=== PATIENT | female | born 1965 | race Caucasian/White ===

== ENCOUNTER 2021-03-07 09:18 | Day surgery (SDC) | payer MEDICARE ==
[2021-03-07] MEDS ORDERED: Depo-Medrol 40 MG/ML IM ONE (09:19)
[2021-03-07] MEDS ORDERED: Sodium Chloride 0.9(Preservative Free) 10 ML IJ ONE (09:19)
[2021-03-07] MEDS ORDERED: DIPRIVAN 200 MG/20 ML IV ONE (10:33)
--- NOTE | 2021-03-07 11:54 | XRAY ---
52 seconds fluoroscopy time in surgery for left L3-S1 transforaminal JEREMIAH.
--- NOTE | 2021-03-07 12:07 | XRAY ---
Indication: Left L3-S1 transforaminal JEREMIAH. Intraoperative fluoroscopy provided for 52 seconds. 3 digital spot image submitted for interpretation demonstrates posterior needle tips projecting over the expected left L3-L5 nerve roots. Small amount of contrast injected for needle tip placement. Correlate with intraoperative findings/report. Incidental incompletely visualized bilateral L4-S1 posterior fusion hardware.
[2021-03-07] MEDS ORDERED: Lactated Ringers 1,000 ML IV ONE (15:30)
== END 2021-03-07 11:10 | disposition home or self-care (01) ==
LOC: SDC-PAIN 09:18
PROVIDERS: ATTEND Psychiatry & Neurology Pain Medicine
DX: M54.16 Radiculopathy, lumbar region (principal); I10 Essential (primary) hypertension; E78.5 Hyperlipidemia, unspecified; E11.9 Type 2 diabetes mellitus without complications; F32.9 Major depressive disorder, single episode, unspecified; F41.9 Anxiety disorder, unspecified; D64.9 Anemia, unspecified; E03.9 Hypothyroidism, unspecified; Z79.899 Other long term (current) drug therapy
CPT/HCPCS: 64483; 64484; 72100; 77003; 82947; J1030; J2704; Q9966

== ENCOUNTER 2021-04-25 07:33 | Day surgery (SDC) | payer MEDICARE ==
[2021-04-25] MEDS ORDERED: BUPIVACAINE 0.5% VIAL IJ ONE (07:34)
[2021-04-25] MEDS ORDERED: Sodium Chloride 0.9(Preservative Free) 10 ML IJ ONE (07:34)
[2021-04-25] MEDS ORDERED: Depo-Medrol 40 MG/ML IM ONE (07:34)
[2021-04-25] MEDS ORDERED: DIPRIVAN 200 MG/20 ML IV ONE ×2 (09:13→09:31)
[2021-04-25] MEDS ORDERED: Ketamine HCl 50 MG/ML ONE (09:13)
[2021-04-25] MEDS ORDERED: Lactated Ringers 1,000 ML IV ONE (10:30)
--- NOTE | 2021-04-25 17:00 | XRAY ---
49 seconds of fluoroscopy in surgery for left L3-L5 transforaminal JEREMIAH.
--- NOTE | 2021-04-25 17:09 | XRAY ---
12 seconds of fluoroscopy in surgery for a left sacroiliac joint injection.
--- NOTE | 2021-04-27 09:17 | XRAY ---
Indication: Left L3-L5 transforaminal JEREMIAH. Intraoperative fluoroscopy was provided for 49 seconds. 4 digital spot images submitted for interpretation demonstrate posterior needle tips projected over the expected course of the left L3 and L4 nerve roots. Some contrast has been injected for needle tip placement. Correlate with intraoperative findings/report. I again partially see orthopedic hardware for a bilateral L4-S1 fusion.
--- NOTE | 2021-04-27 09:27 | XRAY ---
Indication: Left sacroiliac joint injection. Intraoperative fluoroscopy was provided for 12 seconds. A single lateral digital spot image submitted for interpretation demonstrates the posterior needle tip projected over the sacroiliac joint. Correlate with intraoperative findings/report.
== END 2021-04-25 09:50 | disposition home or self-care (01) ==
LOC: SDC-PAIN 07:33
PROVIDERS: ATTEND Psychiatry & Neurology Pain Medicine
DX: M54.16 Radiculopathy, lumbar region (principal); M46.1 Sacroiliitis, not elsewhere classified; E11.9 Type 2 diabetes mellitus without complications; Z79.899 Other long term (current) drug therapy
CPT/HCPCS: 27096; 64483; 64484; 72020; 72100; 77002; 77003; 82947; J1030; J2704; Q9966; G0260

== ENCOUNTER 2021-05-23 08:35 | Day surgery (SDC) | payer MEDICARE ==
[2021-05-23] MEDS ORDERED: Depo-Medrol 40 MG/ML IM ONE (08:36)
[2021-05-23] MEDS ORDERED: LIDOCAINE HCL 2% 100 MG/5 ML IJ ONE (08:36)
[2021-05-23] MEDS ORDERED: Lactated Ringers 1,000 ML IV ONE (09:04)
[2021-05-23] MEDS ORDERED: DIPRIVAN 200 MG/20 ML IV ONE (10:30)
--- NOTE | 2021-05-23 12:03 | XRAY ---
Indication: Bilateral L4-S1 MBB. Intraoperative fluoroscopy provided for 26 seconds. Single digital spot image submitted for interpretation demonstrates posterior needle tips projecting over the expected left and right L4-S1 nerve roots. Correlate with intraoperative findings/report. Incidental bilateral L4-S1 posterior spinal fusion hardware.
--- NOTE | 2021-05-23 12:51 | XRAY ---
26 seconds fluoroscopy time in surgery for bilateral L4-S1 MBB.
== END 2021-05-23 10:55 | disposition home or self-care (01) ==
LOC: SDC-PAIN 08:35
PROVIDERS: ATTEND Psychiatry & Neurology Pain Medicine
DX: M47.816 Spondylosis without myelopathy or radiculopathy, lumbar region (principal); E11.9 Type 2 diabetes mellitus without complications; Z79.899 Other long term (current) drug therapy
CPT/HCPCS: 64493; 64494; 72020; 77002; 82947; J1030; J2704

== ENCOUNTER 2021-06-06 10:17 | Day surgery (SDC) | payer MEDICARE ==
[2021-06-06] MEDS ORDERED: BUPIVACAINE 0.5% VIAL IJ ONE (10:18)
[2021-06-06] MEDS ORDERED: Depo-Medrol 80 MG/ML IM ONE (10:18)
[2021-06-06] MEDS ORDERED: DIPRIVAN 200 MG/20 ML IV ONE (12:04)
--- NOTE | 2021-06-06 13:18 | XRAY ---
Indication: Bilateral L4-S1 MBB. Intraoperative fluoroscopy was provided for 22 seconds. Single digital spot image submitted for interpretation demonstrates posterior needle tips projecting over the expected left and right L4-S1 nerve roots. Correlate with intraoperative findings/report. Incidental bilateral L4-S1 posterior spinal fusion hardware.
--- NOTE | 2021-06-06 14:28 | XRAY ---
22 seconds of fluoroscopy was used in surgery for a bilateral L4-S1 MBB.
[2021-06-06] MEDS ORDERED: Lactated Ringers 1,000 ML IV ONE (17:26)
== END 2021-06-06 12:30 | disposition home or self-care (01) ==
LOC: SDC-PAIN 10:17
PROVIDERS: ATTEND Psychiatry & Neurology Pain Medicine
DX: M47.816 Spondylosis without myelopathy or radiculopathy, lumbar region (principal); E11.9 Type 2 diabetes mellitus without complications; Z79.899 Other long term (current) drug therapy
CPT/HCPCS: 64493; 64494; 72020; 77002; 82947; J1040; J2704

== ENCOUNTER 2021-07-11 08:10 | Day surgery (SDC) | payer MEDICARE ==
[2021-07-11] MEDS ORDERED: BUPIVACAINE 0.5% VIAL IJ ONE (08:11)
[2021-07-11] MEDS ORDERED: Depo-Medrol 40 MG/ML IM ONE (08:11)
[2021-07-11] MEDS ORDERED: Xylocaine 1% Vial 30 ML PF IJ ONE (08:11)
[2021-07-11] MEDS ORDERED: DIPRIVAN 200 MG/20 ML IV ONE (09:20)
--- NOTE | 2021-07-11 12:21 | XRAY ---
Indication: Left L4-S1 RFA. Intraoperative fluoroscopy provided for 42 seconds. 4 digital spot images submitted for interpretation demonstrates posterior needle tips projecting over the expected left L4-S1 nerve roots. Correlate with intraoperative findings/report. Incidental bilateral L4-S1 posterior spinal fusion hardware.
--- NOTE | 2021-07-11 12:23 | XRAY ---
42 seconds of fluoroscopy was used in surgery for a left L4-S1 RFA.
[2021-07-11] MEDS ORDERED: Lactated Ringers 1,000 ML IV ONE (12:26)
== END 2021-07-11 09:55 | disposition home or self-care (01) ==
LOC: SDC-PAIN 08:10
PROVIDERS: ATTEND Psychiatry & Neurology Pain Medicine
DX: M47.816 Spondylosis without myelopathy or radiculopathy, lumbar region (principal); E11.9 Type 2 diabetes mellitus without complications; Z79.899 Other long term (current) drug therapy
CPT/HCPCS: 64635; 64636; 72100; 77002; 82947; J1030; J2001; J2704

== ENCOUNTER 2021-07-18 06:47 | Day surgery (SDC) | payer MEDICARE ==
[2021-07-18] MEDS ORDERED: Depo-Medrol 40 MG/ML IM ONE (06:48)
[2021-07-18] MEDS ORDERED: BUPIVACAINE 0.5% VIAL IJ ONE (06:48)
[2021-07-18] MEDS ORDERED: Xylocaine 1% Vial 30 ML PF IJ ONE (06:48)
[2021-07-18] MEDS ORDERED: DIPRIVAN 200 MG/20 ML IV ONE ×2 (07:56→08:12)
[2021-07-18] MEDS ORDERED: Lactated Ringers 1,000 ML IV ONE (09:54)
--- NOTE | 2021-07-18 09:57 | XRAY ---
44 seconds fluoroscopy time in surgery for right L4-S1 RFA.
--- NOTE | 2021-07-18 09:58 | XRAY ---
Indication: Right L4-S1 RFA. Intraoperative fluoroscopy provided for 44 seconds. 3 digital spot image submitted for interpretation demonstrates posterior needle tips projecting over the expected right L4-S1 nerve roots. Correlate with intraoperative findings/report. Incidental bilateral L4-S1 posterior spinal fusion hardware.
== END 2021-07-18 08:43 | disposition home or self-care (01) ==
LOC: SDC-PAIN 06:47
PROVIDERS: ATTEND Psychiatry & Neurology Pain Medicine
DX: M47.816 Spondylosis without myelopathy or radiculopathy, lumbar region (principal); I10 Essential (primary) hypertension; E78.5 Hyperlipidemia, unspecified; E11.9 Type 2 diabetes mellitus without complications; D64.9 Anemia, unspecified; E03.9 Hypothyroidism, unspecified; F41.9 Anxiety disorder, unspecified; F32.9 Major depressive disorder, single episode, unspecified; Z79.899 Other long term (current) drug therapy
CPT/HCPCS: 64635; 64636; 72100; 77002; 82947; J1030; J2001; J2704

== ENCOUNTER 2021-09-12 09:11 | Day surgery (SDC) | payer MEDICARE ==
[2021-09-12] MEDS ORDERED: Depo-Medrol 40 MG/ML IM ONE (09:12)
[2021-09-12] MEDS ORDERED: BUPIVACAINE 0.5% VIAL IJ ONE (09:12)
[2021-09-12] MEDS ORDERED: Sodium Chloride 0.9% 10 ML FLUSH Syringe IJ ONE (09:12)
[2021-09-12] MEDS ORDERED: DIPRIVAN 200 MG/20 ML IV ONE ×2 (11:06→11:22)
[2021-09-12] MEDS ORDERED: Lactated Ringers 1,000 ML IV ONE (11:19)
--- NOTE | 2021-09-12 13:22 | XRAY ---
Indication: Left L3-L5 transforaminal JEREMIAH. Intraoperative fluoroscopy provided for 1 minute 4 seconds. 2 digital spot image submitted for interpretation demonstrates posterior needle tips projecting over the expected left L3 and L4 nerve roots. Small amount of contrast injected for needle tip placement. Correlate with intraoperative findings/report. Incidental bilateral L4-S1 posterior fusion hardware.
--- NOTE | 2021-09-12 13:22 | XRAY ---
Indication: Left SI joint injection Intraoperative fluoroscopy provided for 8 seconds. 2 digital spot image submitted for interpretation demonstrates posterior needle tip projecting over the inferior left SI joint. Correlate with intraoperative findings/report.
--- NOTE | 2021-09-12 13:24 | XRAY ---
1 minute 4 seconds of fluoroscopy was used in surgery for a left L3-L5 transforaminal JEREMIAH.
--- NOTE | 2021-09-12 13:24 | XRAY ---
8 seconds of fluoroscopy was used in surgery for a left SI joint injection.
== END 2021-09-12 11:45 | disposition home or self-care (01) ==
LOC: SDC-PAIN 09:11
PROVIDERS: ATTEND Psychiatry & Neurology Pain Medicine
DX: M54.16 Radiculopathy, lumbar region (principal); M46.1 Sacroiliitis, not elsewhere classified; I10 Essential (primary) hypertension; E78.5 Hyperlipidemia, unspecified; E11.9 Type 2 diabetes mellitus without complications; Z79.899 Other long term (current) drug therapy
CPT/HCPCS: 27096; 64483; 64484; 72020; 72100; 77002; 77003; 82947; G0260; J1030; J2704; Q9966

== ENCOUNTER 2021-11-07 08:08 | Day surgery (SDC) | payer MEDICARE ==
[2021-11-07] MEDS ORDERED: BUPIVACAINE 0.5% VIAL IJ ONE (08:09)
[2021-11-07] MEDS ORDERED: Xylocaine 1% Vial 30 ML PF IJ ONE (08:09)
[2021-11-07] MEDS ORDERED: Decadron 4 MG INJ IV ONE (08:09)
[2021-11-07] MEDS ORDERED: Depo-Medrol 40 MG/ML IM ONE (08:09)
[2021-11-07] MEDS ORDERED: Lactated Ringers 1,000 ML IV ONE ×2 (09:25→10:35)
[2021-11-07] MEDS ORDERED: DIPRIVAN 200 MG/20 ML IV ONE (09:44)
--- NOTE | 2021-11-07 12:11 | XRAY ---
Indication: Left greater trochanter bursa injection. Intraoperative fluoroscopy provided for 32 seconds. Single digital spot image obtained prone submitted for interpretation demonstrates needle tip lateral to the left greater trochanter. Small amount of contrast injected for needle tip placement. Correlate with intraoperative findings/report.
--- NOTE | 2021-11-07 12:31 | XRAY ---
32 seconds fluoroscopy time in surgery for injection of the greater trochanter of the left hip and the left piriformis muscle.
== END 2021-11-07 10:10 | disposition home or self-care (01) ==
LOC: SDC-PAIN 08:08
PROVIDERS: ATTEND Psychiatry & Neurology Pain Medicine
DX: M79.18 Myalgia, other site (principal); M70.61 Trochanteric bursitis, right hip; E11.9 Type 2 diabetes mellitus without complications; Z79.899 Other long term (current) drug therapy
CPT/HCPCS: 20552; 20610; 73502; 76942; 77002; 82947; J1030; J1100; J2001; J2704; Q9966

== ENCOUNTER 2021-11-29 07:45 | Day surgery (SDC) | payer MEDICARE ==
[2021-11-29] MEDS ORDERED: Depo-Medrol 40 MG/ML IM ONE (07:46)
[2021-11-29] MEDS ORDERED: BUPIVACAINE 0.5% VIAL IJ ONE (07:46)
[2021-11-29] MEDS ORDERED: Lactated Ringers 1,000 ML IV ONE (08:50)
[2021-11-29] MEDS ORDERED: DIPRIVAN 200 MG/20 ML IV ONE (08:53)
--- NOTE | 2021-11-29 11:01 | XRAY ---
38 seconds of fluoroscopy was used in surgery for a left greater trochanteric bursa and intra-articular injection.
--- NOTE | 2021-11-29 11:01 | XRAY ---
Indication: Left hip and greater trochanter bursa injections. Intraoperative fluoroscopy provided for 38 seconds. 2 digital spot images submitted for interpretation demonstrate needle tip lateral to left femur neck and left greater trochanter. Small amount of contrast injected for both needle tip placement. Correlate with intraoperative findings/report.
== END 2021-11-29 09:57 | disposition home or self-care (01) ==
LOC: SDC-PAIN 07:45
PROVIDERS: ATTEND Psychiatry & Neurology Pain Medicine
DX: M16.12 Unilateral primary osteoarthritis, left hip (principal); E11.9 Type 2 diabetes mellitus without complications; I10 Essential (primary) hypertension; Z79.899 Other long term (current) drug therapy
CPT/HCPCS: 20610; 73502; 77002; 82947; J1030; J2704; Q9966

== ENCOUNTER 2022-04-03 07:45 | Day surgery (SDC) | payer MEDICARE ==
[2022-04-03] MEDS ORDERED: Depo-Medrol 40 MG/ML IM ONE (07:46)
[2022-04-03] MEDS ORDERED: Sodium Chloride 0.9(Preservative Free) 10 ML IJ ONE (07:46)
[2022-04-03] MEDS ORDERED: XYLOCAINE-MPF 1% 5ML SDV IJ ONE (07:46)
[2022-04-03] MEDS ORDERED: Decadron 4 MG INJ IV ONE (07:46)
[2022-04-03] MEDS ORDERED: DIPRIVAN 200 MG/20 ML IV ONE (10:01)
[2022-04-03] MEDS ORDERED: Lactated Ringers 1,000 ML IV ONE (10:53)
--- NOTE | 2022-04-03 11:46 | XRAY ---
Indication: Left L3-L5 transforaminal JEREMIAH and left piriformis injection. Intraoperative fluoroscopy provided for 79 seconds. 6 digital spot image submitted for interpretation demonstrates posterior needle tips projecting over the expected left L3 and L4 nerve roots. Additional posterior needle tip projects over the left piriformis muscle. Small amount of contrast injected for all needle tip placement. Correlate with intraoperative findings/report. Incidental scattered bismuth versus barium throughout the colon.
--- NOTE | 2022-04-03 12:07 | XRAY ---
79 seconds of fluoroscopy was used in surgery for a left L3-L5 transforaminal JEREMIAH and a left piriformis injection.
== END 2022-04-03 10:12 | disposition home or self-care (01) ==
LOC: SDC-PAIN 07:45
PROVIDERS: ATTEND Psychiatry & Neurology Pain Medicine
DX: M54.16 Radiculopathy, lumbar region (principal); M79.18 Myalgia, other site; E11.9 Type 2 diabetes mellitus without complications; Z79.899 Other long term (current) drug therapy
CPT/HCPCS: 20552; 64483; 72100; 77002; 77003; 82947; J1030; J1100; J2704; Q9966

== ENCOUNTER 2022-10-23 08:30 | Day surgery (SDC) | payer MEDICARE ==
[2022-10-23] MEDS ORDERED: Sodium Chloride 0.9(Preservative Free) 10 ML IJ ONE (08:31)
[2022-10-23] MEDS ORDERED: Depo-Medrol 40 MG/ML IM ONE (08:31)
[2022-10-23] MEDS ORDERED: DIPRIVAN 200 MG/20 ML IV ONE (11:03)
--- NOTE | 2022-10-23 11:53 | XRAY ---
Indication: Left L3-L5 transforaminal JEREMIAH. Intraoperative fluoroscopy provided for 51 seconds. 6 digital spot image submitted for interpretation demonstrates posterior needle tips projecting over the expected left L3 and L4 nerve roots. Small amount of contrast injected for needle tip placement. Correlate with intraoperative findings/report. Incidental incompletely visualized bilateral L4-S1 posterior fusion hardware.
--- NOTE | 2022-10-23 12:24 | XRAY ---
51 seconds of fluoroscopy was used in surgery for a left L3-L5 transforaminal JEREMIAH.
[2022-10-23] MEDS ORDERED: Lactated Ringers 1,000 ML IV ONE (13:28)
== END 2022-10-23 11:40 | disposition home or self-care (01) ==
LOC: SDC-PAIN 08:30
PROVIDERS: ATTEND Psychiatry & Neurology Pain Medicine
DX: M54.16 Radiculopathy, lumbar region (principal); E11.9 Type 2 diabetes mellitus without complications; Z79.899 Other long term (current) drug therapy
CPT/HCPCS: 64483; 64484; 72100; 77003; 82947; J1030; J2704; Q9966

== ENCOUNTER 2023-02-26 09:06 | Day surgery (SDC) | payer MEDICARE ==
[2023-02-26] MEDS ORDERED: LIDOCAINE HCL 1% 50 MG/5 ML VL PF IJ ONE (09:07)
[2023-02-26] MEDS ORDERED: Depo-Medrol 40 MG/ML IM ONE (09:07)
[2023-02-26] MEDS ORDERED: BUPIVACAINE 0.5% VIAL IJ ONE (09:07)
[2023-02-26] MEDS ORDERED: DIPRIVAN 200 MG/20 ML IV ONE (10:58)
--- NOTE | 2023-02-26 12:18 | XRAY ---
Indication: Left L4-S1 RFA. Intraoperative fluoroscopy provided for 35 seconds. 4 digital spot images submitted for interpretation demonstrates posterior needle tips projecting over the expected left L4-S1 nerve roots. Correlate with intraoperative findings/report. Incidental bilateral L4-S1 posterior fusion hardware.
--- NOTE | 2023-02-26 13:17 | XRAY ---
35 seconds of fluoroscopy was used in surgery for a left L4-S1 RFA.
[2023-02-26] MEDS ORDERED: Lactated Ringers 1,000 ML IV ONE (13:56)
== END 2023-02-26 11:28 | disposition home or self-care (01) ==
LOC: SDC-PAIN 09:06
PROVIDERS: ATTEND Psychiatry & Neurology Pain Medicine
DX: M47.816 Spondylosis without myelopathy or radiculopathy, lumbar region (principal); E11.9 Type 2 diabetes mellitus without complications; Z79.899 Other long term (current) drug therapy
CPT/HCPCS: 64635; 64636; 72100; 77002; 82947; J1030; J2001; J2704

== ENCOUNTER 2023-03-05 09:02 | Day surgery (SDC) | payer MEDICARE ==
[2023-03-05] MEDS ORDERED: Depo-Medrol 40 MG/ML IM ONE (09:03)
[2023-03-05] MEDS ORDERED: BUPIVACAINE 0.5% VIAL IJ ONE (09:03)
[2023-03-05] MEDS ORDERED: LIDOCAINE HCL 1% 50 MG/5 ML VL PF IJ ONE (09:03)
[2023-03-05] MEDS ORDERED: DIPRIVAN 200 MG/20 ML IV ONE (10:53)
--- NOTE | 2023-03-05 13:10 | XRAY ---
Indication: Right L4-S1 RFA Intraoperative fluoroscopy provided for 34 seconds. 7 digital spot image submitted for interpretation demonstrates posterior needle tips projecting over the expected right L4-S1 nerve roots. Correlate with intraoperative findings/report. Incidental bilateral L5-S1 posterior fusion hardware.
[2023-03-05] MEDS ORDERED: Lactated Ringers 1,000 ML IV ONE (13:34)
--- NOTE | 2023-03-05 13:54 | XRAY ---
34 seconds of fluoroscopy was used in surgery for a right L4-S1 RFA.
== END 2023-03-05 11:23 | disposition home or self-care (01) ==
LOC: SDC-PAIN 09:02
PROVIDERS: ATTEND Psychiatry & Neurology Pain Medicine
DX: M47.816 Spondylosis without myelopathy or radiculopathy, lumbar region (principal); E11.9 Type 2 diabetes mellitus without complications; Z79.899 Other long term (current) drug therapy
CPT/HCPCS: 64635; 64636; 72100; 77002; 82947; J1030; J2001; J2704

== ENCOUNTER 2024-06-02 07:50 | Day surgery (SDC) | payer MEDICARE ==
[2024-06-02] MEDS ORDERED: BUPIVACAINE 0.5% VIAL IJ ONE (07:51)
[2024-06-02] MEDS ORDERED: Depo-Medrol 40 MG/ML IM ONE (07:51)
[2024-06-02] MEDS ORDERED: LIDOCAINE HCL 1% AMPUL 5 ML IJ ONE (07:51)
[2024-06-02] MEDS ORDERED: DIPRIVAN 200 MG/20 ML IV ONE (09:16)
[2024-06-02] MEDS ORDERED: Lactated Ringers 1,000 ML IV ONE (09:54)
--- NOTE | 2024-06-02 10:47 | XRAY ---
Indication: Right L4-S1 RFA. Intraoperative fluoroscopy provided for 28 seconds. 5 digital spot images submitted for interpretation demonstrates posterior needle tips projecting over the expected right L4-S1 nerve root. Correlate with intraoperative findings/report. Incidental bilateral L4-S1 posterior fusion hardware.
--- NOTE | 2024-06-02 13:08 | XRAY ---
28 seconds of fluoroscopy was used in surgery for a right L4-S1 RFA.
== END 2024-06-02 09:57 | disposition home or self-care (01) ==
LOC: SDC-PAIN 07:50
PROVIDERS: ATTEND Psychiatry & Neurology Pain Medicine
DX: M47.816 Spondylosis without myelopathy or radiculopathy, lumbar region (principal); E11.9 Type 2 diabetes mellitus without complications
CPT/HCPCS: 64635; 64636; 72100; 77002; 82947; J2704

== ENCOUNTER 2024-06-09 07:52 | Day surgery (SDC) | payer MEDICARE ==
[2024-06-09] MEDS ORDERED: LIDOCAINE HCL 1% AMPUL 5 ML IJ ONE (07:53)
[2024-06-09] MEDS ORDERED: Depo-Medrol 40 MG/ML IM ONE (07:53)
[2024-06-09] MEDS ORDERED: BUPIVACAINE 0.5% VIAL IJ ONE (07:53)
[2024-06-09] MEDS ORDERED: DIPRIVAN 200 MG/20 ML IV ONE (09:47)
[2024-06-09] MEDS ORDERED: Lactated Ringers 1,000 ML IV ONE (09:53)
--- NOTE | 2024-06-09 10:31 | XRAY ---
Indication: Left L4-S1 RFA. Intraoperative fluoroscopy provided for 29 seconds. 3 digital spot image submitted for interpretation demonstrates posterior needle tips projecting over the expected left L4-S1 nerve roots. Correlate with intraoperative findings/report. Incidental bilateral L4-S1 posterior fusion hardware.
--- NOTE | 2024-06-09 11:33 | XRAY ---
29 seconds of fluoroscopy was used in surgery for a left L4-S1 RFA.
== END 2024-06-09 10:15 | disposition home or self-care (01) ==
LOC: SDC-PAIN 07:52
PROVIDERS: ATTEND Psychiatry & Neurology Pain Medicine
DX: M47.816 Spondylosis without myelopathy or radiculopathy, lumbar region (principal); E11.9 Type 2 diabetes mellitus without complications
CPT/HCPCS: 64635; 64636; 72100; 77002; 82947; J2704

== ENCOUNTER 2024-09-22 09:25 | Day surgery (SDC) | payer MEDICARE ==
[2024-09-22] MEDS ORDERED: Sodium Chloride 0.9(Preservative Free) 10 ML IJ ONE (09:26)
[2024-09-22] MEDS ORDERED: dexAMETHasone sodium phosphate IJ ONE (09:26)
[2024-09-22] MEDS ORDERED: propofoL IV ONE (10:36)
[2024-09-22] MEDS ORDERED: MORPHINE SULFATE 2 MG INJ ONE (10:57)
--- NOTE | 2024-09-22 12:14 | XRAY ---
Indication: Left L3-L5 transforaminal JEREMIAH. Intraoperative fluoroscopy provided for 35 seconds. 5 digital spot image submitted for interpretation demonstrates posterior needle tips projecting over the expected left L3 and L4 nerve roots. Small amount of contrast injected for needle tip placement. Correlate with intraoperative findings/report. Incidental bilateral L4-S1 posterior fusion hardware.
--- NOTE | 2024-09-22 12:55 | XRAY ---
35 seconds of fluoroscopy was used in surgery for a left L3-L5 transforaminal JEREMIAH.
== END 2024-09-22 11:17 | disposition home or self-care (01) ==
LOC: SDC-PAIN 09:25
PROVIDERS: ATTEND Psychiatry & Neurology Pain Medicine
DX: M54.16 Radiculopathy, lumbar region (principal); E11.9 Type 2 diabetes mellitus without complications
CPT/HCPCS: 64483; 64484; 72100; 77003; 82947; J1100; J2270; J2704; Q9966

== ENCOUNTER 2024-10-21 07:54 | Day surgery (SDC) | payer MEDICARE ==
[2024-10-21] MEDS ORDERED: dexAMETHasone sodium phosphate IJ ONE (07:55)
[2024-10-21] MEDS ORDERED: Sodium Chloride 0.9(Preservative Free) 10 ML IJ ONE (07:55)
[2024-10-21] MEDS ORDERED: propofoL IV ONE (10:19)
[2024-10-21] MEDS ORDERED: MORPHINE SULFATE 2 MG INJ ONE (10:52)
--- NOTE | 2024-10-21 11:56 | XRAY ---
Indication: Left L3-L4 and L5-S1 transforaminal JEREMIAH. Intraoperative fluoroscopy provided for 56 seconds. 5 digital spot image submitted for interpretation demonstrates posterior needle tips projecting over expected left L3 and L5 nerve roots. Small amount of contrast injected for needle tip placement. Correlate with intraoperative findings/report. Incidental bilateral L4-S1 posterior fusion hardware.
--- NOTE | 2024-10-21 11:58 | XRAY ---
Indication: Left piriformis injection. Intraoperative fluoroscopy provided for 7 seconds. Single digital spot image submitted for interpretation demonstrates posterior needle tip projecting over left piriformis. Small amount of contrast injected for needle tip placement. Correlate with intraoperative findings/report. Incidental incompletely visualized lower lumbar fusion hardware.
--- NOTE | 2024-10-21 13:12 | XRAY ---
56 seconds of fluoroscopy was used in surgery for a left L3-L4 and L5-S1 transforaminal JEREMIAH.
--- NOTE | 2024-10-21 13:13 | XRAY ---
7 seconds of fluoroscopy was used in surgery for a left piriformis injection.
== END 2024-10-21 11:20 | disposition home or self-care (01) ==
LOC: SDC-PAIN 07:54
PROVIDERS: ATTEND Psychiatry & Neurology Pain Medicine
DX: M54.16 Radiculopathy, lumbar region (principal); E11.9 Type 2 diabetes mellitus without complications; M79.18 Myalgia, other site
CPT/HCPCS: 20552; 64483; 64484; 72100; 72170; 77002; 77003; 82947; J1100; J2270; J2704; Q9966